=== PATIENT | male | born 1975 | race Caucasian/White ===

== ENCOUNTER 2017-04-29 18:48 | Outpatient (CLI) | payer BC, OTHER ==
--- NOTE | 2017-04-29 20:24 | Ultrasound Preliminary Report ---
Exam: US TESTICLE W/DOPPLER IMPRESSION: Bilateral testicles and epididymides appear within normal limits. Small bilateral hydroce les. RADIA The call report notification system was initiated by Dr. Philomena Santoyo at 20:13 hrs on 04/29/17. The above findings were discussed with Dr. Lundberg by Dr. Philomena Santoyo at 20:22 hrs on 04/29/17. SITE ID: [id number]
--- NOTE | 2017-04-29 20:27 | Ultrasound Report ---
EXAM: SCROTAL ULTRASOUND EXAM DATE: 04/29/2017 07:01 PM. CLINICAL HISTORY: ORCHITIS. COMPARISON: None. TECHNIQUE: Real-time scanning was performed with static images obtained. Both color-flow and Doppler spectral analysis were utilized. FINDINGS: Right: Testis: 4.5 x 2.3 x 3.3 cm. Normal size and echotexture. No mass, calcification, or abnormal blood fl ow. Epididymis: 0.8 x 1.4 x 0.9 cm. Normal size and echotexture. No mass or abnormal blood flow. Hydrocele: Small Varicocele: None. Left: Testis: 4.5 x 2.3 x 3.3 cm. Normal size and echotexture. No mass, calcification, or abnormal blood fl ow. Epididymis: 1.2 x 0.5 x 0.8 cm. Normal size and echotexture. No mass or abnormal blood flow. Hydrocele: Small Varicocele: None. IMPRESSION: Bilateral testicles and epididymides appear within normal limits. Small bilateral hydroce les. RADIA The call report notification system was initiated by Dr. Philomena Santoyo at 20:13 hrs on 04/29/17. The above findings were discussed with Dr. Lundberg by Dr. Philomena Santoyo at 20:22 hrs on 04/29/17. Referring Provider Line: [phone] SITE ID: [id number]
== END 2017-04-29 18:49 | disposition home or self-care (01) ==
LOC: DI 18:48
PROVIDERS: ATTEND Specialist
DX: N43.3 Hydrocele, unspecified (principal)
CPT/HCPCS: 76870; 93975

== ENCOUNTER 2017-11-29 06:13 | Day surgery (SDC) | payer BC ==
[2017-11-29] MEDS ORDERED: LACTATED RINGERS 1,000 ML IV ONE (06:41)
[2017-11-29] MEDS ORDERED: MIDAZOLAM 2 MG/2 ML VIAL IVP ONE (07:38)
[2017-11-29] MEDS ORDERED: fentaNYL 250 MCG/5 ML VIAL IVP ONE (07:38)
[2017-11-29 08:26] VITALS: BP 125/73
== END 2017-11-29 06:14 | disposition home or self-care (01) ==
LOC: SDS 06:13
PROVIDERS: ATTEND Surgery
PROC: 0DBN8ZX Excision of Sigmoid Colon, Via Natural or Artificial Opening Endoscopic, Diagnostic (ICD-10-PCS; 2017-11-29)
PROC: 0DBP8ZX Excision of Rectum, Via Natural or Artificial Opening Endoscopic, Diagnostic (ICD-10-PCS; principal; 2017-11-29 07:30)
DX: K62.5 Hemorrhage of anus and rectum (principal); K64.8 Other hemorrhoids; K63.5 Polyp of colon; I10 Essential (primary) hypertension; K21.9 Gastro-esophageal reflux disease without esophagitis
CPT/HCPCS: 45380; J3010; J7120

== ENCOUNTER 2017-12-30 11:36 | Outpatient (CLI) | payer BC ==
[2017-12-30] MEDS ORDERED: IOPAMIDOL-300 100 ML VIAL ONE (13:13)
[2017-12-30] MEDS ORDERED: IOPAMIDOL-300 100 ML VIAL IVP ONE (13:18)
--- NOTE | 2017-12-30 14:44 | CT Report ---
Procedure Date: 12/30/2017 Accession Number: [id number] / [id number] Procedure: CT - Pelvis W/ CPT Code: FULL RESULT: EXAM: Pelvis W/ DATE: 12/30/2017 1:17 PM CLINICAL HISTORY: PELVIC PAIN COMPARISON: None. TECHNIQUE: Routine helical CT imaging was performed through the pelvis. IV contrast: 100 cc Isovue 300 Enteric contrast: No. Reconstructions: Coronal and sagittal. In accordance with CT protocol optimization, one or more of the following dose reduction techniques were utilized for this exam: automated exposure control, adjustment of mA and/or KV based on patient size, or use of iterative reconstructive technique. FINDINGS: Peritoneal Cavity/Bowel: Imaged portions of the lower peritoneal cavity show no free fluid, free air or adenopathy. No masses or acute inflammatory process. No abnormal collections. Pelvic Organs: Normal. The bladder, rectum, and pelvic organs are within normal limits. Vasculature: No aneurysms or other significant abnormality. Bones: No significant abnormality. Other: No inguinal hernia or groin adenopathy identified. IMPRESSION: Normal CT pelvis. RADIA
== END 2017-12-30 11:37 | disposition home or self-care (01) ==
LOC: DI 11:36
PROVIDERS: ATTEND Surgery
DX: R10.2 Pelvic and perineal pain (principal)
CPT/HCPCS: 72193; Q9967

== ENCOUNTER 2022-06-01 14:41 | Outpatient (CLI) | payer BC ==
--- NOTE | 2022-06-02 12:09 | XRAY Report ---
PROCEDURE: Hip w/Pelvis 2-3V RT INDICATIONS: RIGHT HIP PAIN TECHNIQUE: AP pelvis with lateral view(s) of the right hip(s). COMPARISON: CT pelvis, 12/30/2017. FINDINGS: Bones: No fractures or dislocations. Pelvic ring appears intact. No suspicious bony lesions Mild hip joint degeneration bilaterally. There is a 1 cm sclerotic density medial to the right femoral hea d. Probable bone island in the left superior acetabulum. Soft tissues: The visualized bowel gas pattern is normal. No suspicious soft tissue calcifications. IMPRESSION: 1. Mild degenerative joint disease in hips bilaterally. 2. A 1 cm sclerotic density medial to the femoral head. This could be a bone island or an intra-artic ular body. If clinical symptoms persist, MRI is recommended for further evaluation. Reviewed by: Mariangel Grewal MD on 06/02/2022 12:07 PM PST Approved by: Mariangel Grewal MD on 06/02/2022 12:07 PM PST Station ID: [id number]
== END 2022-06-01 14:42 | disposition home or self-care (01) ==
LOC: DI 14:41
PROVIDERS: ATTEND Nurse Practitioner Family
DX: M16.0 Bilateral primary osteoarthritis of hip (principal)

== ENCOUNTER 2022-07-02 10:13 | Outpatient (CLI) | payer BC ==
--- NOTE | 2022-07-02 11:31 | XRAY Report ---
PROCEDURE: Knee 3 View RT INDICATIONS: RIGHT KNEE PAIN TECHNIQUE: 3 views of the right knee(s) were acquired. COMPARISON: None. FINDINGS: Bones: No fractures or dislocations. Mild joint space narrowing and subchondral sclerosis in medial femoral tibial compartment is seen. No suspicious bony lesions. Soft tissues: No joint effusion. No suspicious soft tissue calcifications. IMPRESSION: No right knee fracture or dislocation. Mild medial femoral tibial compartment osteoarthr itis. No significant joint effusion. Reviewed by: Volodymyr Celaya MD on 07/02/2022 11:29 AM PST Approved by: Volodymyr Celaya MD on 07/02/2022 11:29 AM PST Station ID: [id number]
--- NOTE | 2022-07-02 11:41 | MRI Report ---
PROCEDURE: HIP WO - RT INDICATIONS: RIGHT HIP PAIN TECHNIQUE: Noncontrast coronal T1 spin echo and STIR through the bony pelvis. Coronal and axial T2 fast spin ec ho with fat saturation, sagittal T1 spin echo, and oblique axial T2 fast spin echo with fat saturatio n through the hip. COMPARISON: Right hip radiograph dated 06/01/[address] of pelvis dated 12/30/2017. FINDINGS: Image quality: Excellent. Bones and joints: Mild symmetric appearing bilateral hip joint osteoarthritic changes are seen with s uperior joint space narrowing and subchondral sclerosis. Prominence of right femoral head neck juncti on is seen which can be seen associated with cam-type femoral acetabular impingement. No intraosseous lesions or fractures. No avascular necrosis of the femoral heads. The visualized lower lumbar spin e appears normally aligned. Tendons: Low to moderate grade partial-thickness tear involving distal gluteus medius tendon at its i nsertion on greater trochanter is seen with surrounding edema. Distal gluteus medius and minimus tend inosis at its greater trochanteric insertion is also noted. The iliopsoas tendon appears intact, with out adjacent bursal fluid collections. The origin of the hamstring tendon is intact at the ischial t uberosity. Labrum and cartilage: Subtle signal abnormality and contour irregularity in superior anterior right h ip labrum at 12 to 1:00 position is seen concerning for subtle superior anterior labral tear. Cartila ge surface of the femoral head appears thinned. Soft tissues: Visualized muscles demonstrate normal bulk and internal signal. The proximal sciatic neurovascular bundle appears normal adjacent to the hamstring tendons. No free pelvic fluid. Bladde r wall thickness is normal. Genitourinary structures and bowel loops appear normal where visualized. IMPRESSION: 1. Mild bilateral hip joint osteoarthritis. No marrow edema. No fracture or dislocation. No evidence of avascular necrosis of femoral head. 2. Mild prominence of right femoral head neck junction which can be seen associated with cam-type fem oral acetabular impingement. 3. Low to moderate grade partial-thickness tear involving distal right gluteus medius at its insertio n on greater trochanter. Distal gluteus minimus tendinosis. No other muscle or tendon signal abnormal ities. 4. Suggestion of superior anterior labral tear at 12 to 1:00 position. Reviewed by: Volodymyr Celaya MD on 07/02/2022 11:40 AM PST Approved by: Volodymyr Celaya MD on 07/02/2022 11:40 AM PST Station ID: [id number]
== END 2022-07-02 10:14 | disposition home or self-care (01) ==
LOC: DI 10:13
PROVIDERS: ATTEND Nurse Practitioner Family
DX: S76.011A Strain of muscle, fascia and tendon of right hip, initial encounter (principal); M16.0 Bilateral primary osteoarthritis of hip; M17.11 Unilateral primary osteoarthritis, right knee

== ENCOUNTER 2023-08-05 13:59 | Outpatient (CLI) | payer BC ==
[2023-08-05 14:17] LABS: BASOPHILS % (AUTO) 0.5 %; EOSINOPHILS # (AUTO) 0.1 10^3/uL (0.0-0.7); EOSINOPHILS % (AUTO) 2.1 %; HCT - HEMATOCRIT 45.8 % (42.0-52.0); LYMPHOCYTES # (AUTO) 2.1 10^3/uL (1.5-3.5); LYMPHOCYTES % (AUTO) 36.1 %; MEAN CORPUSCULAR HEMOGLOBIN 29.9 pg (27.0-31.0); MEAN CORPUSCULAR HGB CONC 32.8 g/dL (32.0-36.0); MEAN CORPUSCULAR VOLUME 91.2 fL (80.0-94.0); MEAN PLATELET VOLUME 10.4 fL (7.4-11.4); MONOCYTES # (AUTO) 0.5 10^3/uL (0.0-1.0); NEUTROPHILS # (AUTO) 3.1 10^3/uL (1.5-6.6); NEUTROPHILS % (AUTO) 53.1 %; PLT - PLATELET COUNT 219 10^3/uL (130-450); RED BLOOD COUNT 5.02 10^6/uL (4.70-6.10); RED CELL DISTRIBUTION WIDTH 12.2 % (12.0-15.0); WHITE BLOOD COUNT 5.8 x10^3/uL (4.8-10.8)
[2023-08-05 14:29] LABS: ALBUMIN 4.5 g/dL (3.2-5.5); ALBUMIN/GLOBULIN RATIO 1.6 (1.0-2.2); ALKALINE PHOSPHATASE 74 IU/L (42-121); ALT ALANINE AMINOTRANSFERASE 22 IU/L (10-60); AST ASPARTATE AMINOTRANSFERASE 17 IU/L (10-42); BILIRUBIN,TOTAL 0.4 mg/dL (0.2-1.0); BUN - BLOOD UREA NITROGEN 17 mg/dL (6-20); CALCIUM 9.8 mg/dL (8.5-10.3); CARBON DIOXIDE - CO2 30 mmol/L (21-32); CHLORIDE 100 mmol/L (101-111); CHOL/HDL RATIO 5.8 (<5.0); CHOLESTEROL 279 mg/dL; CREATININE 0.9 mg/dL (0.6-1.3); GFR - MDRD 91 (>89); GLUCOSE 86 mg/dL (74-104); HDL CHOLESTEROL 48 mg/dL; LDL CHOLESTEROL,CALCULATED 164 mg/dL; LDL/HDL RATIO 3.4 (<3.6); POTASSIUM 3.6 mmol/L (3.5-4.5); SODIUM 137 mmol/L (135-145); TOTAL PROTEIN 7.3 g/dL (6.4-8.9); TRIGLYCERIDES 335 mg/dL (48-352); VLDL CHOLESTEROL 67 mg/dL
[2023-08-05 14:43] LABS: THYROID STIMULATING HORMONE 2.28 uIU/mL (0.34-5.60)
== END 2023-08-05 14:00 | disposition home or self-care (01) ==
LOC: LAB 13:59
PROVIDERS: ATTEND Nurse Practitioner Family
DX: E78.5 Hyperlipidemia, unspecified (principal); R39.12 Poor urinary stream; F41.1 Generalized anxiety disorder
CPT/HCPCS: 36415; 80053; 80061; 83721; 84153; 84443; 85025

== ENCOUNTER 2023-12-13 15:35 | Outpatient (CLI) | payer BC ==
[2023-12-13 16:02] LABS: ALBUMIN 4.5 g/dL (3.2-5.5); ALBUMIN/GLOBULIN RATIO 1.9 (1.0-2.2); ALKALINE PHOSPHATASE 72 IU/L (42-121); ALT ALANINE AMINOTRANSFERASE 22 IU/L (10-60); AST ASPARTATE AMINOTRANSFERASE 16 IU/L (10-42); BILIRUBIN,TOTAL 0.4 mg/dL (0.2-1.0); BUN - BLOOD UREA NITROGEN 16 mg/dL (6-20); CALCIUM 9.6 mg/dL (8.5-10.3); CARBON DIOXIDE - CO2 27 mmol/L (21-32); CHLORIDE 105 mmol/L (101-111); CHOL/HDL RATIO 5.3 (<5.0); CHOLESTEROL 280 mg/dL; GFR - MDRD 80 (>89); GLUCOSE 77 mg/dL (74-104); HDL CHOLESTEROL 53 mg/dL; POTASSIUM 3.7 mmol/L (3.5-4.5); SODIUM 139 mmol/L (135-145); TOTAL PROTEIN 6.9 g/dL (6.4-8.9); TRIGLYCERIDES 460 mg/dL (48-352)
[2023-12-13 16:19] LABS: LDL CHOLESTEROL,DIRECT 186 mg/dL (75-193); LDLD/HDL RATIO 3.5 (<3.6)
== END 2023-12-13 15:36 | disposition home or self-care (01) ==
LOC: LAB 15:35
PROVIDERS: ATTEND Nurse Practitioner Family
DX: E78.5 Hyperlipidemia, unspecified (principal)
CPT/HCPCS: 36415; 80053; 80061; 83721

== ENCOUNTER 2023-12-27 21:44 | Emergency (ER) | payer BC ==
[2023-12-27 22:18] LABS: BASOPHILS % (AUTO) 0.4 %; EOSINOPHILS # (AUTO) 0.2 10^3/uL (0.0-0.7); EOSINOPHILS % (AUTO) 1.8 %; HCT - HEMATOCRIT 47.4 % (42.0-52.0); HGB - HEMOGLOBIN 15.6 g/dL (14.0-18.0); LYMPHOCYTES # (AUTO) 2.6 10^3/uL (1.5-3.5); LYMPHOCYTES % (AUTO) 23.4 %; MEAN CORPUSCULAR HEMOGLOBIN 29.7 pg (27.0-31.0); MEAN CORPUSCULAR HGB CONC 32.9 g/dL (32.0-36.0); MEAN CORPUSCULAR VOLUME 90.3 fL (80.0-94.0); MEAN PLATELET VOLUME 10.3 fL (7.4-11.4); MONOCYTES # (AUTO) 1.1 10^3/uL (0.0-1.0); MONOCYTES % (AUTO) 10.1 %; PLT - PLATELET COUNT 230 10^3/uL (130-450); RED BLOOD COUNT 5.25 10^6/uL (4.70-6.10); RED CELL DISTRIBUTION WIDTH 12.1 % (12.0-15.0)
[2023-12-27 22:20] LABS: BILIRUBIN,URINE NEGATIVE (NEGATIVE); GLUCOSE, URINE (UA) NEGATIVE (NEGATIVE); KETONES,URINE (UA) NEGATIVE (NEGATIVE); LEUKOCYTE ESTERASE, URINE NEGATIVE (NEGATIVE); NITRITE,URINE NEGATIVE (NEGATIVE); OCCULT BLOOD,URINE TRACE-LYSE (NEGATIVE); PROTEIN,URINE NEGATIVE (NEGATIVE); UROBILINOGEN,URINE 0.2 (NORMAL) E.U./dL (NORMAL)
[2023-12-27 22:22] LABS: CLARITY,URINE CLEAR (CLEAR)
[2023-12-27 22:34] LABS: ALBUMIN 4.9 g/dL (3.2-5.5); ALBUMIN/GLOBULIN RATIO 1.8 (1.0-2.2); BILIRUBIN,TOTAL 0.7 mg/dL (0.2-1.0); CREATININE 0.9 mg/dL (0.6-1.3); POTASSIUM 3.7 mmol/L (3.5-4.5); TOTAL PROTEIN 7.6 g/dL (6.4-8.9)
--- NOTE | 2023-12-27 23:04 | ED Physician Documentation ---
PD HPI ABD PAIN - Stated complaint Stated Complaint: ABD PX/BACK PX - Chief complaint Chief Complaint: Abd Pain - History obtained from History obtained from: Patient - Additional information Additional information: HPI from patient. Patient complains of pain, pressure and bloating across his upper abdomen. Initial onset was yesterday shortly after eating lunch, resolved only to recur last night. He says the pain was never severe, but was bothersome enough to keep him from sleeping through most of the night. He has had very few episodes of nausea with vomiting, but most p.o. does not incite symptoms (pain, n/v). There are no exacerbating nor ameliorating factors. He has not had the symptoms before. He has no past surgical history. Review of Systems Cardiac: denies: Chest pain / pressure, Palpitations Respiratory: denies: Dyspnea GI: reports: Abdominal Pain, Nausea, Vomiting PD PAST MEDICAL HISTORY - Past Medical History Past Medical History: Yes Cardiovascular: High cholesterol, Other Respiratory: None Neuro: None Endocrine/Autoimmune: None GI: GI bleed, Chronic diarrhea : None HEENT: Chronic vision loss Psych: None Musculoskeletal: Osteoarthritis Derm: Other - Past Surgical History Past Surgical History: Yes Ortho: Arthroscopic surgery, Other - Present Medications Home Medications: Ambulatory Orders Medication Instructions Recorded Confirmed Omeprazole [PriLOSEC] 10 mg PO DAILY 11/28/17 11/29/17 traMADol [Ultram] 50 mg PO Q4-6H PRN #20 tablet 12/28/23 - Allergies Allergies/Adverse Reactions: Allergies Allergy/AdvReac Type Severity Reaction Status Date / Time Penicillins Allergy Rash Verified 11/29/17 06:41 doxycycline AdvReac Unknown Verified 12/27/23 22:00 - Social History Does the pt smoke?: No Smoking Status: Never smoker Does the pt drink ETOH?: Yes Does the pt have substance abuse?: Yes Substance Use and Type: Marijuana - Immunizations Immunizations are current?: Yes - POLST Patient has POLST: No PD ED PE NORMAL - Vitals Vital signs reviewed: Yes - General General: Alert and oriented X 3, No acute distress, Well developed/nourished - Cardiac Cardiac: RRR, No murmur - Respiratory Respiratory: No respiratory distress, Clear bilaterally - Abdomen Abdomen: Soft, Non tender, Non distended Results - Vitals Vitals: Vital Signs - 24 hr 06/12/27/23 12/28/23 21:54 22:17 01:52 Temperature 36.5 C Heart Rate 64 67 66 Respiratory 17 14 14 Rate Blood Pressure 145/95 H 135/99 H 145/96 H O2 Saturation 100 97 98 Oxygen O2 Source Room air - Labs Labs: Laboratory Tests 12/27/23 12/27/23 12/27/23 22:00 22:13 22:13 WBC 11.0 H RBC 5.25 Hgb 15.6 Hct 47.4 MCV 90.3 MCH 29.7 MCHC 32.9 RDW 12.1 Plt Count 230 MPV 10.3 Neut # (Auto) 7.0 H Lymph # (Auto) 2.6 [place] # (Auto) 1.1 H Eos # (Auto) 0.2 Baso # (Auto) 0.0 Absolute Nucleated RBC 0.00 Nucleated RBC % 0.0 Sodium 136 Potassium 3.7 Chloride 101 Carbon Dioxide 27 Anion Gap 8.0 BUN 15 Creatinine 0.9 Estimated GFR (MDRD) 91 Glucose 85 Calcium 10.0 Total Bilirubin 0.7 AST 14 ALT 20 Alkaline Phosphatase 82 Total Protein 7.6 Albumin 4.9 Globulin 2.7 Albumin/Globulin Ratio 1.8 Lipase 48 Urine Color YELLOW Urine Clarity CLEAR Urine pH 7.0 Ur Specific [place] 1.010 Urine Protein NEGATIVE Urine Glucose (UA) NEGATIVE Urine Ketones NEGATIVE Urine Occult Blood TRACE-LYSE Urine Nitrite NEGATIVE Urine Bilirubin NEGATIVE Urine Urobilinogen 0.2 (NORMAL) Ur Leukocyte Esterase NEGATIVE Ur Microscopic Review NOT INDICATED Urine Culture Comments NOT INDICATED - Rads (name of study) RUQ US Relevant Findings:: Prelim report reviewed, See rad report PD Medical Decision Making - ED course Complexity details: reviewed results, re-evaluated patient, considered differential, d/w patient ED course: Normal ER abdominal panel, minimal leukocytosis on otherwise unremarkable CBC (WBC 11). Normal urinalysis. Right upper quadrant ultrasound is unremarkable except for incidental note of hepatic steatosis. The cause of patient's symptoms is not apparent at this time. He is in NAD both on initial evaluation as well as on reevaluation prior to discharge. He was given 30 mg Toradol IV early in his ED stay, and on reevaluation reports complete resolution of the mild, residual discomfort he was having when I first evaluated him tonight. Results discussed with patient. Return precautions reviewed. Advised him to contact his PCP to arrange for the next available appointment for follow- up/reevaluation. Prior to discharge, he is given 50 mg p.o. tramadol (although he is reporting resolution of the pain, he is concerned that the pain will recur overnight before he can get to a pharmacy in the morning and thus the tramadol was given). I have also electronically submitted a prescription for tramadol to patient's pharmacy of choice. Departure - Departure Disposition: 01 Home, Self Care Clinical Impression: Abdominal pain Qualifiers: Abdominal location: upper abdomen, unspecified Qualified Code(s): R10.10 - Upper abdominal pain, unspecified Condition: Good Instructions: ED Abdominal Pain Unkn Cause Male Prescriptions: traMADol [Ultram] 50 mg PO Q4-6H PRN #20 tablet PRN Reason: Abdominal Pain Comments: There were no concerning nor diagnostic findings on tonight's test, including the blood test, urinalysis, and the ultrasound. The cause of your symptoms is not apparent at this time. Follow-up with your primary care provider later this morning as scheduled. I have electronically submitted a prescription for tramadol (narcotic/opiate pain medication) to the [facility] in [place]. I am prescribing a short course of narcotic pain medication for you. These are potentially dangerous and addictive medications that should be used carefully. These medications may constipate you. Take an vbow-uuq-vaxzaho stool softener (docusate) twice daily with plenty of water while taking these medications. If you go 24 hours without a bowel movement, take [id number] miralax, per package instructions. Do not drink or drive while taking these medications. If you received narcotic or sedating medications while in the emergency department, do not drive for 24 hours. Store this medication in a safe, secure place and out of reach of children. It is a violation of federal law to give or sell this medication to another person or to use in a manner other than prescribed. The ED will not refill narcotic prescriptions, including prescriptions lost or stolen. To dispose of unwanted medications: 1. [facility] [address] in [place] has a medication drop box. They accept prescription medications (in pill form) Tuesday through Tuesday 9:00 a.m. to 5:00 p.m. 2. [facility] [employer] [facility] accepts prescription medications (in pill form only) for disposal year round. Call for more information. 3. Contact the [facility] for the next [facility] sponsored prescription drug collection event. , [phone], or [phone]; Discharge Date/Time: 12/28/23 01:52
[2023-12-27] MEDS: KETOROLAC 30 MG/ML VIAL IVP STA (23:24)
[2023-12-28] MEDS: traMADol 50 MG TABLET PO STA (01:49)
[2023-12-28 01:59] VITALS: BP 145/96; O2SAT 98
--- NOTE | 2023-12-28 02:32 | Ultrasound Report ---
PROCEDURE: Abdomen Limited INDICATIONS: abd. pain TECHNIQUE: Real-time focused scanning was performed of the abdomen, with image documentation. COMPARISONS: None. FINDINGS: Liver: Increased liver echogenicity, commonly mild hepatic steatosis. Gallbladder: No gallstones, sludge, wall thickening or pericholecystic edema. Biliary ducts: Intrahepatic bile ducts are non-dilated. Extrahepatic bile duct caliber measures 3 m m. Normal is 6-7 mm or less in diameter, or 10 mm or less post-cholecystectomy. Pancreas: Not well visualized due to overlying bowel gas. Right kidney: Normal in size and echotexture. Right kidney measures 10.1 cm long. No hydronephrosis or nephrolithiasis. No solid masses. No complex renal cystic lesions which require follow-up. Miscellaneous: No free abdominal fluid. IMPRESSION: Hepatic steatosis. No sonographic evidence for cholelithiasis or acute cholecystitis. Reviewed by: Colton Hester MD on 12/28/2023 2:31 AM PDT Approved by: Colton Hetser MD on 12/28/2023 2:31 AM PDT Station ID: [id number]
== END 2023-12-28 01:52 | disposition home or self-care (01) ==
LOC: ED 21:44
DX: R10.10 Upper abdominal pain, unspecified (principal)
CPT/HCPCS: 36415; 76705; 80053; 81003; 83690; 85025; 96374; 99284; A9270; 81001; 87086